=== PATIENT | female | born 1985 | race American Indian/Alaskan Native ===

== ENCOUNTER 2017-06-27 18:49 | Inpatient (IN) | payer OTHER ==
--- NOTE | 2017-06-27 19:00 | History and Physical Report ---
History of Present Illness Date of examination: 06/27/17 Date of admission: 06/27/17 18:49 History of present illness: EDC Confirmation: 06/20/2017 Gestational Age: 10 weeks Past History : 1 Term Births: 0 Living Children: 0 Para: 0 Aborta: 0 Past Medical History: Asthma Past Surgical History: Knee Arthroscopy(R) Family History Summary: Other family member - Has No Family History of Stomach Cancer - Entered On: 2016 Other family member - Has No Family History of Small Bowel Cancer - Entered On: 11/22/2016 Other family member - Has No Family History of Pancreatic Cancer - Entered On: Other family member - Has No Family History of Ovarvian Cancer - Entered On: 11/22 Other family member - Has No Family History of Kidney/Urinary Tract Cancer - Entered On: 11/22/2016 Other family member - Has No Family History of DVT/PE on OCP - Entered On: 2016 Other family member - Has No Family History of Breast Cancer - Entered On: 2016 Other family member - Has No Family History of Brain Cancer - Entered On: 2016 Other family member - Has No Family History of Biliary Tract Cancer - Entered On : 11/22/2016 PGM - Has Family History of Uterine Cancer - Entered On: 11/22/2016 Other family member - Has Family History Colon Cancer - Entered On: 11/22/2016 Social History: Patient is Smoking History: Patient has never smoked. 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 Infection History Hx of STD: none Personal hx. of genital herpes: no Partner hx. of genital herpes: no Rash, Viral, or Febrile illness since last LMP? no Varicella/Chicken Pox Status: Previous Disease TB Risk: no Genetic History Congenital Heart Defect: Mom: no Dad: no Timothy Disease: Mom: no Dad: no Thalassemia Mom: no Dad: no Neural Tube Defect Mom: no Dad: no Down's Syndrome Mom: no Dad: no Cain-Sachs Mom: no Dad: no Sickle Cell Disease/Trait Mom: no Dad: no Hemophilia Mom: no Dad: no Muscular Dystrophy Mom: no Dad: no Cystic Fibrosis Mom: no Dad: no Ely Chorea Mom: no Dad: no Mental Retardation Mom: no Dad: no Fragile X Mom: no Dad: no Other Genetic/Chromosomal Disorder Mom: no Dad: no Child w/other defect Mom: no Dad: no Enviromental Exposures Enviromental Exposures Reviewed Xray Exposure: no Medication, drug, or alcohol use since LMP: yes Chemical/Other Exposure: no Exposure to Cat Liter: no Hx of Parvovirus (Fifth Disease): no Occupational Exposure to Children: other Comments: amoxicillin, loratidine, works at [email or web address] Active Medications (reviewed today): LORATADINE 10 MG ORAL TABS (LORATADINE) AMOXICILLIN 500 MG ORAL TABS (AMOXICILLIN) Current Allergies: DICLOFENAC SODIUM (DICLOFENAC SODIUM TBEC) (Critical) VOLTAREN (Critical) Laboratory Results Date/Time Collected: 11/22/2016 Routine Urinalysis Color: lt. yellow Appearance: cloudy Leukocytes: negative Nitrite: negative Urobilinogen: negative Protein: negative Blood: negative Ketone: negative Bilirubin: negative Glucose: negative Urine HCG: positive Review of Systems General Denies fever, chills, sweats, anorexia, fatigue, weakness, malaise, weight loss and sleep disorder. Complains of nausea and vomiting. Denies headache, swelling of legs, abdominal pain, vaginal discharge, vaginal bleeding and contractions. Denies vaginal discharge, incontinence, dysuria, hematuria, urinary frequency, amenorrhea, menorrhagia, abnormal vaginal bleeding, pelvic pain, genital sores, decreased libido, painful periods, painful sex, urinary urgency, hot flashes, vaginal dryness, vaginal itching and vaginal odor. CV Denies chest pains, palpitations, syncope, dyspnea on exertion, orthopnea, PND and peripheral edema. Resp Denies cough, dyspnea at rest, excessive sputum, hemoptysis, wheezing and pleurisy. GI Denies nausea, vomiting, diarrhea, constipation, change in bowel habits, abdominal pain, melena, hematochezia, jaundice, gas/bloating, indigestion/ heartburn, dysphagia and odynophagia. Endo Denies cold intolerance, heat intolerance, polydipsia, polyphagia, polyuria and unusual weight change. Breast Denies left breast lump, right breast lump, nipple discharge, bloody discharge from nipple, breast pain, abnormal mammogram and breast enlargement. MS Complains of back pain. Denies joint pain, joint swelling, muscle cramps, muscle weakness, stiffness, arthritis, sciatica, restless legs, leg pain at night and leg pain with exertion. Derm Denies rash, itching, dryness and suspicious lesions. Neuro Denies paralysis, paresthesias, headache, seizures, tremors, vertigo, transient blindness, frequent falls, frequent headaches and difficulty walking. Psych Denies depression, anxiety, irritability and mood swings. Eyes Denies blurring, diplopia, irritation, discharge, vision loss, eye pain and photophobia. ENT Denies earache, ear discharge, tinnitus, decreased hearing, nasal congestion, nosebleeds, sore throat and hoarseness. Allergy Denies urticaria, allergic rash, hay fever and recurrent infections. Heme Denies abnormal bruising, bleeding and enlarged lymph nodes. 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 Negative: distention, tenderness Genitourinary (Female): Positive: normal perenium Vulva: both: normal Vagina: Positive: normal moisture. Negative: discharge Cervix: Negative: lesion, discharge Uterus: Positive: normal size, normal contour Adnexa: both: normal Anus/Rectum: Positive: normal perianal skin, heme negative. Negative: rectal mass, hemorrhoids Extremities: Positive: normal Deep Tendon Reflex Grade: Normal +2 - Obstetrical FHR: category 1 Uterine Contraction Monitor Mode: External Uterine Contraction Pattern: Absent Uterine Tone Measurement Phase: Resting Uterine Contraction Intensity: Mild Results All other labs normal. HBsAg Screen Negative Negative *1 Rubella Antibodies, IgG 18.10 index Immune >0.99 *2 Non-immune <0.90 Equivocal 0.90 - 0.99 Immune >0.99 ABO Grouping B *3 Rh Factor Negative *4 Please note: Prior records for this patient's ABO / Rh type are not available for additional verification. Antibody Screen Negative Negative *5 RPR Non Reactive Non Reactive *6 WBC [H] 11.3 x10E3/uL 3.4-10.8 *7 RBC 4.56 x10E6/uL 3.77-5.28 *8 Hemoglobin 12.8 g/dL 11.1-15.9 *9 Hematocrit 39.3 % 34.0-46.6 *10 MCV 86 fL 79-97 *11 MCH 28.1 pg 26.6-33.0 *12 MCHC 32.6 g/dL 31.5-35.7 *13 RDW 13.9 % 12.3-15.4 *14 Platelets [H] 409 x10E3/uL 150-379 *15 Neutrophils 68 % *16 Lymphs 26 % *17 Monocytes 5 % *18 Eos 1 % *19 Basos 0 % *20 ! Immature Cells <No Reported Value> *21 Neutrophils (Absolute) [H] 7.6 x10E3/uL 1.4-7.0 *22 Lymphs (Absolute) 3.0 x10E3/uL 0.7-3.1 *23 Monocytes(Absolute) 0.6 x10E3/uL 0.1-0.9 *24 Eos (Absolute) 0.1 x10E3/uL 0.0-0.4 *25 Baso (Absolute) 0.0 x10E3/uL 0.0-0.2 *26 ! Immature Granulocytes 0 % *27 ! Immature Grans (Abs) 0.0 x10E3/uL 0.0-0.1 *28 ! NRBC <No Reported Value> *29 Hematology Comments: <No Reported Value> *30 Tests: (3) HB Solu + Rflx Fra (669697) Hemoglobin (Hgb) Solubility Negative Negative *33 Tests: (4) Panel 567408 ([id number]) HIV Screen 4th Generation wRfx Non Reactive Non Reactive *34 Tests: (5) Gest. Diabetes 1-Hr Screen (490175) ! Gestational Diabetes Screen 115 mg/dL 65-139 *35 Tests: (6) HCV Ab w/Rflx to Verification ([id number]) ! HCV Ab <0.1 s/co ratio 0.0-0.9 *36 Tests: (7) Comment: ([id number]) ! Comment: [facility] *37 Non reactive HCV antibody screen is consistent with no HCV infection, unless recent infection is suspected or other evidence exists to indicate HCV infection. Tests: (8) Urine Culture, Routine ([id number]) Urine Culture, Routine Final report *38 Tests: (9) Result ([id number]) ! Result 1 No growth *39 Assessment and Plan 31yo @ 41 week seen in office today with NRNST IOL was originally roshan for tomorrow. Will admit tonight for IOL with Cervidil GBS + will start Ampicillin when in active labor. Orders in EMR Pt aware of nature of serial IOL and that we are available to answer questions at any time
[2017-06-27] MEDS ORDERED: BRETHINE SUB-Q PRN (19:08)
[2017-06-27] MEDS ORDERED: CERVIDIL VG ONE (19:08)
[2017-06-27] MEDS ORDERED: ePHEDrine SULFATE IV PRN (19:08)
[2017-06-27] MEDS ORDERED: POLYCILLIN/NS 2 GM/100 ML 2 GM/100 ML BAG IV ONE (19:08)
[2017-06-27] MEDS ORDERED: XYLOCAINE 2% INFILTRATI ONE (19:08)
[2017-06-27] MEDS ORDERED: MINERAL OIL PO PRN (19:08)
[2017-06-27] MEDS ORDERED: ZOFRAN IV PRN (19:08)
[2017-06-27] MEDS ORDERED: AMBIEN PO PRN (19:38)
[2017-06-27] MEDS ORDERED: PITOCin/NS 20 UNIT/1000ML DRIP 20 UNITS/1,000 ML BAG IV SCH (20:00)
[2017-06-27 20:09] LABS: Hematocrit 39.9 % (30.3-42.9); Hemoglobin 13.2 gm/dl (10.1-14.3); Mean Corpuscular HGB Conc 33 % (30-34); Mean Corpuscular Hemoglobin 29 pg (28-32); Mean Corpuscular Volume 87 fl (79-97); Platelet Count 419 K/mm3 (140-440); Red Blood Count 4.61 M/mm3 (3.65-5.03); Red Cell Distribution Width 14.1 % (13.2-15.2); White Blood Count 13.9 K/mm3 (4.5-11.0)
--- NOTE | 2017-06-27 20:32 | Event Note ---
Date: 06/27/17 (cervidil placed) SVE closed, 10% -3 All questions addressed Family present in room with pt
[2017-06-27] MEDS ORDERED: POLYCILLIN/NS 1 GM/50 ML 1 GM/50 ML BAG IV SCH (23:10)
--- NOTE | 2017-06-28 06:17 | Progress Note ---
Assessment and Plan Discussed POC with pt and family. Cervidil out @ 0800, AM care, Diet. Will plan to start pitocin @ 0900. Pt understands serial nature of induction. She is aware that section may be indicated for and or maternal indications. Report to NIRMAL Stanford Subjective - Subjective Date of service: 06/28/17 (Cervidil in place to be removed @ 0800) Interval history: EDC Confirmation: 06/20/2017 Gestational Age: 10 weeks Past History : 1 Term Births: 0 Living Children: 0 Para: 0 Aborta: 0 Past Medical History: Asthma Past Surgical History: Knee Arthroscopy(R) Family History Summary: Other family member - Has No Family History of Stomach Cancer - Entered On: 2016 Other family member - Has No Family History of Small Bowel Cancer - Entered On: 11/22/2016 Other family member - Has No Family History of Pancreatic Cancer - Entered On: Other family member - Has No Family History of Ovarvian Cancer - Entered On: 11/22 Other family member - Has No Family History of Kidney/Urinary Tract Cancer - Entered On: 11/22/2016 Other family member - Has No Family History of DVT/PE on OCP - Entered On: 2016 Other family member - Has No Family History of Breast Cancer - Entered On: 2016 Other family member - Has No Family History of Brain Cancer - Entered On: 2016 Other family member - Has No Family History of Biliary Tract Cancer - Entered On : 11/22/2016 PGM - Has Family History of Uterine Cancer - Entered On: 11/22/2016 Other family member - Has Family History Colon Cancer - Entered On: 11/22/2016 Social History: Patient is Smoking History: Patient has never smoked. 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 Infection History Hx of STD: none Personal hx. of genital herpes: no Partner hx. of genital herpes: no Rash, Viral, or Febrile illness since last LMP? no Varicella/Chicken Pox Status: Previous Disease TB Risk: no Genetic History Congenital Heart Defect: Mom: no Dad: no Timothy Disease: Mom: no Dad: no Thalassemia Mom: no Dad: no Neural Tube Defect Mom: no Dad: no Down's Syndrome Mom: no Dad: no Cain-Sachs Mom: no Dad: no Sickle Cell Disease/Trait Mom: no Dad: no Hemophilia Mom: no Dad: no Muscular Dystrophy Mom: no Dad: no Cystic Fibrosis Mom: no Dad: no [place] Chorea Mom: no Dad: no Mental Retardation Mom: no Dad: no Fragile X Mom: no Dad: no Other Genetic/Chromosomal Disorder Mom: no Dad: no Child w/other defect Mom: no Dad: no Enviromental Exposures Enviromental Exposures Reviewed Xray Exposure: no Medication, drug, or alcohol use since LMP: yes Chemical/Other Exposure: no Exposure to Cat Liter: no Hx of Parvovirus (Fifth Disease): no Occupational Exposure to Children: other Comments: amoxicillin, loratidine, works at [employer] Active Medications (reviewed today): LORATADINE 10 MG ORAL TABS (LORATADINE) AMOXICILLIN 500 MG ORAL TABS (AMOXICILLIN) Current Allergies: DICLOFENAC SODIUM (DICLOFENAC SODIUM TBEC) (Critical) VOLTAREN (Critical) Laboratory Results Date/Time Collected: 11/22/2016 Routine Urinalysis Color: lt. yellow Appearance: cloudy Leukocytes: negative Nitrite: negative Urobilinogen: negative Protein: negative Blood: negative Ketone: negative Bilirubin: negative Glucose: negative Urine HCG: positive Review of Systems General Denies fever, chills, sweats, anorexia, fatigue, weakness, malaise, weight loss and sleep disorder. Complains of nausea and vomiting. Denies headache, swelling of legs, abdominal pain, vaginal discharge, vaginal bleeding and contractions. Denies vaginal discharge, incontinence, dysuria, hematuria, urinary frequency, amenorrhea, menorrhagia, abnormal vaginal bleeding, pelvic pain, genital sores, decreased libido, painful periods, painful sex, urinary urgency, hot flashes, vaginal dryness, vaginal itching and vaginal odor. CV Denies chest pains, palpitations, syncope, dyspnea on exertion, orthopnea, PND and peripheral edema. Resp Denies cough, dyspnea at rest, excessive sputum, hemoptysis, wheezing and pleurisy. GI Denies nausea, vomiting, diarrhea, constipation, change in bowel habits, abdominal pain, melena, hematochezia, jaundice, gas/bloating, indigestion/ heartburn, dysphagia and odynophagia. Endo Denies cold intolerance, heat intolerance, polydipsia, polyphagia, polyuria and unusual weight change. Breast Denies left breast lump, right breast lump, nipple discharge, bloody discharge from nipple, breast pain, abnormal mammogram and breast enlargement. MS Complains of back pain. Denies joint pain, joint swelling, muscle cramps, muscle weakness, stiffness, arthritis, sciatica, restless legs, leg pain at night and leg pain with exertion. Derm Denies rash, itching, dryness and suspicious lesions. Neuro Denies paralysis, paresthesias, headache, seizures, tremors, vertigo, transient blindness, frequent falls, frequent headaches and difficulty walking. Psych Denies depression, anxiety, irritability and mood swings. Eyes Denies blurring, diplopia, irritation, discharge, vision loss, eye pain and photophobia. ENT Denies earache, ear discharge, tinnitus, decreased hearing, nasal congestion, nosebleeds, sore throat and hoarseness. Allergy Denies urticaria, allergic rash, hay fever and recurrent infections. Heme Denies abnormal bruising, bleeding and enlarged lymph nodes. 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: No lesions, normal BUS, normal rugae Cervix: No lesions; no cervical motion tenderness Uterus: normal position, midline, mobile Fundal Ht: 9 Adnexae: no masses or tenderness Rectovaginal: no masses or tenderness Patient reports: movement normal Objective - Vital Signs Vital Signs: Vital Signs - 12hr 06/27/17 06/27/17 06/27/17 19:34 19:39 19:44 Temperature Pulse Rate 104 H 110 H 117 H Respiratory Rate Blood Pressure 130/66 O2 Sat by Pulse 99 99 99 Oximetry 06/27/17 06/27/17 06/27/17 19:49 19:54 19:59 Temperature Pulse Rate 114 H 105 H 112 H Respiratory Rate Blood Pressure O2 Sat by Pulse 98 99 97 Oximetry 06/27/17 06/27/17 06/27/17 20:04 20:09 20:14 Temperature Pulse Rate 107 H 109 H 105 H Respiratory Rate Blood Pressure O2 Sat by Pulse 98 98 98 Oximetry 06/27/17 06/27/17 06/27/17 20:19 20:24 20:29 Temperature Pulse Rate 105 H 109 H 102 H Respiratory Rate Blood Pressure O2 Sat by Pulse 98 99 98 Oximetry 06/27/17 06/27/17 06/27/17 20:32 20:33 20:34 Temperature 97.7 F Pulse Rate 108 H 101 H 108 H Respiratory 12 Rate Blood Pressure 116/74 116/74 O2 Sat by Pulse 98 98 Oximetry 06/27/17 06/27/17 06/27/17 20:39 20:44 20:49 Temperature Pulse Rate 100 H 98 H 95 H Respiratory Rate Blood Pressure O2 Sat by Pulse 99 99 99 Oximetry 06/27/17 06/27/17 06/27/17 20:54 20:59 21:04 Temperature Pulse Rate 112 H 105 H 94 H Respiratory Rate Blood Pressure O2 Sat by Pulse 99 98 98 Oximetry 06/27/17 06/27/17 06/27/17 21:09 21:14 21:19 Temperature Pulse Rate 95 H 92 H 95 H Respiratory Rate Blood Pressure O2 Sat by Pulse 97 98 99 Oximetry 06/27/17 06/27/17 06/27/17 21:24 21:29 21:34 Temperature Pulse Rate 90 88 89 Respiratory Rate Blood Pressure O2 Sat by Pulse 98 99 98 Oximetry 06/27/17 06/27/17 06/27/17 21:39 21:44 21:49 Temperature Pulse Rate 94 H 88 90 Respiratory Rate Blood Pressure O2 Sat by Pulse 98 98 98 Oximetry 06/27/17 06/27/17 06/27/17 21:54 21:59 22:04 Temperature Pulse Rate 96 H 85 94 H Respiratory Rate Blood Pressure O2 Sat by Pulse 98 98 98 Oximetry 06/27/17 06/27/17 06/27/17 22:09 22:14 22:19 Temperature Pulse Rate 102 H 91 H 94 H Respiratory Rate Blood Pressure O2 Sat by Pulse 98 98 98 Oximetry 06/27/17 06/27/17 06/27/17 22:24 22:29 22:34 Temperature Pulse Rate 102 H 97 H 86 Respiratory Rate Blood Pressure O2 Sat by Pulse 98 99 98 Oximetry 06/27/17 06/27/17 06/27/17 22:51 22:56 23:01 Temperature Pulse Rate 86 108 H 94 H Respiratory Rate Blood Pressure O2 Sat by Pulse 100 99 99 Oximetry 06/27/17 06/27/17 06/27/17 23:06 23:11 23:16 Temperature Pulse Rate 87 93 H 84 Respiratory Rate Blood Pressure O2 Sat by Pulse 98 99 99 Oximetry 06/27/17 06/27/17 06/27/17 23:21 23:26 23:31 Temperature Pulse Rate 85 103 H 103 H Respiratory Rate Blood Pressure O2 Sat by Pulse 99 99 98 Oximetry 06/27/17 06/27/17 06/27/17 23:36 23:41 23:46 Temperature Pulse Rate 90 86 89 Respiratory Rate Blood Pressure O2 Sat by Pulse 99 98 98 Oximetry 06/27/17 06/27/17 06/28/17 23:51 23:56 00:01 Temperature Pulse Rate 84 99 H 85 Respiratory Rate Blood Pressure O2 Sat by Pulse 98 96 98 Oximetry 06/28/17 06/28/17 06/28/17 00:06 00:11 00:16 Temperature Pulse Rate 90 75 85 Respiratory Rate Blood Pressure O2 Sat by Pulse 98 99 99 Oximetry 06/28/17 06/28/17 06/28/17 00:21 00:26 00:31 Temperature Pulse Rate 75 87 77 Respiratory Rate Blood Pressure O2 Sat by Pulse 98 97 98 Oximetry 06/28/17 06/28/17 06/28/17 00:36 00:41 00:46 Temperature Pulse Rate 82 83 87 Respiratory Rate Blood Pressure O2 Sat by Pulse 96 97 97 Oximetry 06/28/17 06/28/17 06/28/17 00:51 00:56 01:01 Temperature Pulse Rate 84 84 86 Respiratory Rate Blood Pressure O2 Sat by Pulse 97 98 97 Oximetry 06/28/17 06/28/17 06/28/17 01:06 01:11 01:16 Temperature Pulse Rate 83 85 101 H Respiratory Rate Blood Pressure O2 Sat by Pulse 97 97 98 Oximetry 06/28/17 06/28/17 06/28/17 01:21 01:26 01:31 Temperature Pulse Rate 90 95 H 97 H Respiratory Rate Blood Pressure O2 Sat by Pulse 99 98 98 Oximetry 06/28/17 06/28/17 06/28/17 01:36 01:41 01:46 Temperature Pulse Rate 83 75 80 Respiratory Rate Blood Pressure O2 Sat by Pulse 100 98 98 Oximetry 06/28/17 06/28/17 06/28/17 01:51 01:56 02:08 Temperature Pulse Rate 93 H 85 95 H Respiratory Rate Blood Pressure O2 Sat by Pulse 96 99 100 Oximetry 06/28/17 06/28/17 06/28/17 02:13 02:18 02:23 Temperature Pulse Rate 85 89 113 H Respiratory Rate Blood Pressure O2 Sat by Pulse 100 99 97 Oximetry 06/28/17 06/28/17 06/28/17 02:28 02:33 02:38 Temperature Pulse Rate 93 H 91 H 86 Respiratory Rate Blood Pressure O2 Sat by Pulse 98 98 99 Oximetry 06/28/17 06/28/17 06/28/17 02:43 02:48 02:53 Temperature Pulse Rate 91 H 89 104 H Respiratory Rate Blood Pressure O2 Sat by Pulse 99 100 98 Oximetry 06/28/17 06/28/17 06/28/17 02:58 03:03 03:08 Temperature Pulse Rate 104 H 108 H 105 H Respiratory Rate Blood Pressure O2 Sat by Pulse 98 96 98 Oximetry 06/28/17 06/28/17 06/28/17 03:13 03:18 03:23 Temperature Pulse Rate 109 H 112 H 97 H Respiratory Rate Blood Pressure O2 Sat by Pulse 97 98 98 Oximetry 06/28/17 06/28/17 06/28/17 03:24 03:28 03:30 Temperature Pulse Rate 92 H 103 H 95 H Respiratory Rate Blood Pressure O2 Sat by Pulse 91 97 94 Oximetry 06/28/17 06/28/17 06/28/17 03:33 03:35 03:38 Temperature Pulse Rate 100 H 89 107 H Respiratory Rate Blood Pressure O2 Sat by Pulse 97 92 95 Oximetry 06/28/17 06/28/17 06/28/17 03:40 03:43 03:47 Temperature Pulse Rate 97 H 88 109 H Respiratory Rate Blood Pressure O2 Sat by Pulse 94 97 94 Oximetry 06/28/17 06/28/17 06/28/17 03:48 03:53 03:58 Temperature Pulse Rate 95 H 84 88 Respiratory Rate Blood Pressure O2 Sat by Pulse 97 100 100 Oximetry 06/28/17 06/28/17 06/28/17 04:03 04:08 04:13 Temperature Pulse Rate 81 93 H 93 H Respiratory Rate Blood Pressure O2 Sat by Pulse 98 97 98 Oximetry 06/28/17 06/28/17 06/28/17 04:18 04:23 04:28 Temperature Pulse Rate 86 88 103 H Respiratory Rate Blood Pressure O2 Sat by Pulse 100 98 98 Oximetry 06/28/17 06/28/17 06/28/17 04:33 04:38 04:43 Temperature Pulse Rate 106 H 96 H 101 H Respiratory Rate Blood Pressure O2 Sat by Pulse 98 98 98 Oximetry 06/28/17 06/28/17 06/28/17 04:48 04:53 04:58 Temperature Pulse Rate 94 H 113 H 100 H Respiratory Rate Blood Pressure O2 Sat by Pulse 99 99 100 Oximetry 06/28/17 06/28/17 06/28/17 05:03 05:08 05:13 Temperature Pulse Rate 101 H 88 90 Respiratory Rate Blood Pressure O2 Sat by Pulse 100 99 99 Oximetry 06/28/17 06/28/17 06/28/17 05:18 05:23 05:28 Temperature Pulse Rate 101 H 103 H 97 H Respiratory Rate Blood Pressure O2 Sat by Pulse 98 99 99 Oximetry 06/28/17 06/28/17 06/28/17 05:33 05:38 05:43 Temperature Pulse Rate 99 H 100 H 92 H Respiratory Rate Blood Pressure O2 Sat by Pulse 97 97 96 Oximetry 06/28/17 06/28/17 06/28/17 05:48 05:53 05:58 Temperature Pulse Rate 87 96 H 95 H Respiratory Rate Blood Pressure O2 Sat by Pulse 99 97 97 Oximetry 06/28/17 06/28/17 06:03 06:08 Temperature Pulse Rate 109 H 80 Respiratory Rate Blood Pressure O2 Sat by Pulse 99 100 Oximetry - Exam Breasts: deferred Cardiovascular: Regular rate Lungs: Normal air movement Abdomen: Present: normal appearance, soft. Absent: distention, tenderness Vulva: both: normal Uterus: Present: normal FHR: auscultation normal, category 1 Uterine Contraction Monitor Mode: External Uterine Contraction Pattern: Irregular Uterine Tone Measurement Phase: Resting Uterine Contraction Intensity: Mild Extremities: normal Deep Tendon Reflex Grade: Normal +2 - Labs Labs: Abnormal Labs 06/27/17 19:42 WBC 13.9 H Laboratory Results - last 24 hr 06/27/17 06/27/17 19:40 19:42 WBC 13.9 H RBC 4.61 Hgb 13.2 Hct 39.9 MCV 87 MCH 29 MCHC 33 RDW 14.1 Plt Count 419 Blood Type B NEGATIVE Antibody Screen Negative
[2017-06-28] MEDS: LACTATED RINGERS 1,000 ML IV SCH (06:28)
[2017-06-28] MEDS ORDERED: CERVIDIL VG ONE (09:00)
--- NOTE | 2017-06-28 13:48 | Progress Note ---
Assessment and Plan - Patient Problems (1) 41 weeks gestation of Current Visit: Yes Status: Acute (2) Group B Streptococcus carrier state affecting Current Visit: Yes Status: Acute (3) Non-reassuring heart rate or rhythm affecting management of mother Current Visit: Yes Status: Acute Plan to address problem: Plan of care explained, questions answered, she voiced understanding and agrees with plan of care. (4) Rh negative status during in third trimester Current Visit: Yes Status: Acute Subjective - Subjective Date of service: 06/28/17 Principal diagnosis: IUP@41 11/20w see in office yesterday with NRNST Interval history: 2nd cervidil placed d/t unfavorable cervix. Patient reports: movement normal, no new complaints Objective - Vital Signs Vital Signs: Vital Signs - 12hr 06/28/17 06/28/17 06/28/17 01:46 01:51 01:56 Temperature Pulse Rate 80 93 H 85 Respiratory Rate Blood Pressure O2 Sat by Pulse 98 96 99 Oximetry 06/28/17 06/28/17 06/28/17 02:08 02:13 02:18 Temperature Pulse Rate 95 H 85 89 Respiratory Rate Blood Pressure O2 Sat by Pulse 100 100 99 Oximetry 06/28/17 06/28/17 06/28/17 02:23 02:28 02:33 Temperature Pulse Rate 113 H 93 H 91 H Respiratory Rate Blood Pressure O2 Sat by Pulse 97 98 98 Oximetry 06/28/17 06/28/17 06/28/17 02:38 02:43 02:48 Temperature Pulse Rate 86 91 H 89 Respiratory Rate Blood Pressure O2 Sat by Pulse 99 99 100 Oximetry 06/28/17 06/28/17 06/28/17 02:53 02:58 03:03 Temperature Pulse Rate 104 H 104 H 108 H Respiratory Rate Blood Pressure O2 Sat by Pulse 98 98 96 Oximetry 06/28/17 06/28/17 06/28/17 03:08 03:13 03:18 Temperature Pulse Rate 105 H 109 H 112 H Respiratory Rate Blood Pressure O2 Sat by Pulse 98 97 98 Oximetry 06/28/17 06/28/17 06/28/17 03:23 03:24 03:28 Temperature Pulse Rate 97 H 92 H 103 H Respiratory Rate Blood Pressure O2 Sat by Pulse 98 91 97 Oximetry 06/28/17 06/28/17 06/28/17 03:30 03:33 03:35 Temperature Pulse Rate 95 H 100 H 89 Respiratory Rate Blood Pressure O2 Sat by Pulse 94 97 92 Oximetry 06/28/17 06/28/17 06/28/17 03:38 03:40 03:43 Temperature Pulse Rate 107 H 97 H 88 Respiratory Rate Blood Pressure O2 Sat by Pulse 95 94 97 Oximetry 06/28/17 06/28/17 06/28/17 03:47 03:48 03:53 Temperature Pulse Rate 109 H 95 H 84 Respiratory Rate Blood Pressure O2 Sat by Pulse 94 97 100 Oximetry 06/28/17 06/28/17 06/28/17 03:58 04:03 04:08 Temperature Pulse Rate 88 81 93 H Respiratory Rate Blood Pressure O2 Sat by Pulse 100 98 97 Oximetry 06/28/17 06/28/17 06/28/17 04:13 04:18 04:23 Temperature Pulse Rate 93 H 86 88 Respiratory Rate Blood Pressure O2 Sat by Pulse 98 100 98 Oximetry 06/28/17 06/28/17 06/28/17 04:28 04:33 04:38 Temperature Pulse Rate 103 H 106 H 96 H Respiratory Rate Blood Pressure O2 Sat by Pulse 98 98 98 Oximetry 06/28/17 06/28/17 06/28/17 04:43 04:48 04:53 Temperature Pulse Rate 101 H 94 H 113 H Respiratory Rate Blood Pressure O2 Sat by Pulse 98 99 99 Oximetry 06/28/17 06/28/17 06/28/17 04:58 05:03 05:08 Temperature Pulse Rate 100 H 101 H 88 Respiratory Rate Blood Pressure O2 Sat by Pulse 100 100 99 Oximetry 06/28/17 06/28/17 06/28/17 05:13 05:18 05:23 Temperature Pulse Rate 90 101 H 103 H Respiratory Rate Blood Pressure O2 Sat by Pulse 99 98 99 Oximetry 06/28/17 06/28/17 06/28/17 05:28 05:33 05:38 Temperature Pulse Rate 97 H 99 H 100 H Respiratory Rate Blood Pressure O2 Sat by Pulse 99 97 97 Oximetry 06/28/17 06/28/17 06/28/17 05:43 05:48 05:53 Temperature Pulse Rate 92 H 87 96 H Respiratory Rate Blood Pressure O2 Sat by Pulse 96 99 97 Oximetry 06/28/17 06/28/17 06/28/17 05:58 06:03 06:08 Temperature Pulse Rate 95 H 109 H 80 Respiratory Rate Blood Pressure O2 Sat by Pulse 97 99 100 Oximetry 06/28/17 06/28/17 06/28/17 06:13 06:18 06:23 Temperature 96.8 F L Pulse Rate 89 101 H 91 H Respiratory 14 Rate Blood Pressure 107/63 O2 Sat by Pulse 100 99 99 Oximetry 06/28/17 06/28/17 06/28/17 06:28 06:33 06:38 Temperature Pulse Rate 99 H 92 H 96 H Respiratory Rate Blood Pressure O2 Sat by Pulse 99 99 100 Oximetry 06/28/17 06/28/17 06/28/17 06:43 06:48 06:53 Temperature Pulse Rate 84 84 81 Respiratory Rate Blood Pressure O2 Sat by Pulse 98 97 97 Oximetry 06/28/17 06/28/17 06/28/17 06:55 06:58 07:03 Temperature Pulse Rate 77 83 89 Respiratory Rate Blood Pressure O2 Sat by Pulse 94 98 97 Oximetry 06/28/17 06/28/17 06/28/17 07:08 07:12 07:13 Temperature Pulse Rate 91 H 116 H 104 H Respiratory Rate Blood Pressure O2 Sat by Pulse 95 94 100 Oximetry 06/28/17 06/28/17 06/28/17 07:18 07:21 07:45 Temperature 98.3 F Pulse Rate 100 H 92 H 88 Respiratory 16 Rate Blood Pressure 117/71 120/65 O2 Sat by Pulse 97 Oximetry 06/28/17 06/28/17 06/28/17 09:16 11:05 13:40 Temperature 98.2 F Pulse Rate 101 H 103 H 77 Respiratory 16 Rate Blood Pressure 110/58 125/66 O2 Sat by Pulse 99 Oximetry - Exam Breasts: deferred Lungs: Normal air movement FHR: category 1 Uterine Contraction Monitor Mode: External Cervical Dilatation: 0 (per RN ) Uterine Contraction Pattern: Irregular - Labs Labs: Abnormal Labs 06/27/17 19:42 WBC 13.9 H Laboratory Results - last 24 hr 06/27/17 06/27/17 06/27/17 19:40 19:42 19:42 WBC 13.9 H RBC 4.61 Hgb 13.2 Hct 39.9 MCV 87 MCH 29 MCHC 33 RDW 14.1 Plt Count 419 RPR Nonreactive Blood Type B NEGATIVE Antibody Screen Negative
--- NOTE | 2017-06-28 21:46 | Progress Note ---
Assessment and Plan Cervidil removed, no cervical change, will start low dose pitocin to avoid vaginal irritation with prolonged cervidil use. Plan of care explained to patient and her family, she vocied understanding and agrees with plan of care - Patient Problems (1) 41 weeks gestation of Current Visit: Yes Status: Acute (2) Group B Streptococcus carrier state affecting Current Visit: Yes Status: Acute (3) Rh negative status during in third trimester Current Visit: Yes Status: Acute Subjective - Subjective Date of service: 06/28/17 Principal diagnosis: IUP@41 11/20w see in office yesterday with NRNST Interval history: No complaints, +fm, cramping Patient reports: movement normal, no new complaints, no loss of fluid, no vaginal bleeding Objective - Vital Signs Vital Signs: Vital Signs - 12hr 06/28/17 06/28/17 06/28/17 11:05 13:40 14:52 Temperature 98.2 F Pulse Rate 103 H 77 104 H Respiratory 16 Rate Blood Pressure 110/58 125/66 129/70 O2 Sat by Pulse Oximetry 06/28/17 06/28/17 06/28/17 18:00 19:47 19:52 Temperature 99.2 F Pulse Rate 76 88 83 Respiratory 16 Rate Blood Pressure 129/70 O2 Sat by Pulse 99 100 100 Oximetry 06/28/17 06/28/17 06/28/17 19:57 19:58 20:02 Temperature 98.9 F Pulse Rate 84 91 H 88 Respiratory 18 Rate Blood Pressure 128/81 O2 Sat by Pulse 100 100 100 Oximetry 06/28/17 06/28/17 06/28/17 20:07 20:12 20:17 Temperature Pulse Rate 90 85 80 Respiratory Rate Blood Pressure O2 Sat by Pulse 100 100 100 Oximetry 06/28/17 06/28/17 06/28/17 20:22 20:27 20:32 Temperature Pulse Rate 83 90 78 Respiratory Rate Blood Pressure O2 Sat by Pulse 100 100 100 Oximetry 06/28/17 06/28/17 06/28/17 20:37 20:42 20:47 Temperature Pulse Rate 92 H 82 81 Respiratory Rate Blood Pressure O2 Sat by Pulse 100 100 100 Oximetry 06/28/17 06/28/17 20:52 21:25 Temperature Pulse Rate 83 89 Respiratory Rate Blood Pressure O2 Sat by Pulse 100 99 Oximetry - Exam Breasts: deferred Lungs: Normal air movement Abdomen: Present: soft Vulva: both: normal FHR: category 1 Cervical Dilatation: 0 Cervical Effacement Percentage: 0 station: -4 Uterine Contraction Pattern: Irregular - Labs Labs: Abnormal Labs 06/27/17 19:42 WBC 13.9 H Laboratory Results - last 24 hr 06/27/17 19:42 RPR Nonreactive
[2017-06-28] MEDS ORDERED: PITOCin/NS 30 UNIT/500ML 30 UNITS/500 ML BAG IV SCH (22:00)
--- NOTE | 2017-06-29 06:00 | Progress Note ---
Assessment and Plan Day # 2 of IOL postdates with a NRNST in office on Tuesday. Pt has been on low dose pit overnite. SVE this AM shows significant change since my exam on Tuesday. 1.5,50,-2 will allow pt OOB for AM care and family will get some breakfast for her. P: Pitocin per protocol. GBS+: Will start Ampicillin when pt is 4cm. Consult with . Re-eval as needed. Subjective - Subjective Date of service: 06/29/17 (Pt OOB to void) Principal diagnosis: IUP@41 12/21w see in office yesterday with NRNST Interval history: EDC Confirmation: 06/20/2017 Gestational Age: 10 weeks Past History : 1 Term Births: 0 Living Children: 0 Para: 0 Aborta: 0 Past Medical History: Asthma Past Surgical History: Knee Arthroscopy(R) Family History Summary: Other family member - Has No Family History of Stomach Cancer - Entered On: 2016 Other family member - Has No Family History of Small Bowel Cancer - Entered On: 11/22/2016 Other family member - Has No Family History of Pancreatic Cancer - Entered On: Other family member - Has No Family History of Ovarvian Cancer - Entered On: 11/22 Other family member - Has No Family History of Kidney/Urinary Tract Cancer - Entered On: 11/22/2016 Other family member - Has No Family History of DVT/PE on OCP - Entered On: 2016 Other family member - Has No Family History of Breast Cancer - Entered On: 2016 Other family member - Has No Family History of Brain Cancer - Entered On: 2016 Other family member - Has No Family History of Biliary Tract Cancer - Entered On : 11/22/2016 PGM - Has Family History of Uterine Cancer - Entered On: 11/22/2016 Other family member - Has Family History Colon Cancer - Entered On: 11/22/2016 Social History: Patient is Smoking History: Patient has never smoked. Risk Factors: Smoked Tobacco Use: Never smoker Drug use: no Alcohol use: no Exercise: no Seatbelt use: 100 % Past Medical History Surgery (Non-supervisor money room): Knee Arthroscopy(R) Abnormal PAP: never SAMINA Exposure: negative Infertility: negative Uterine Anomaly: negative Uterine Surgery (not C/S): negative Other Gynecologic Problems: negative Social Hx: Patient is Smoking History: Patient has never smoked. Infection History Hx of STD: none Personal hx. of genital herpes: no Partner hx. of genital herpes: no Rash, Viral, or Febrile illness since last LMP? no Varicella/Chicken Pox Status: Previous Disease TB Risk: no Genetic History Congenital Heart Defect: Mom: no Dad: no Timothy Disease: Mom: no Dad: no Thalassemia Mom: no Dad: no Neural Tube Defect Mom: no Dad: no Down's Syndrome Mom: no Dad: no Cain-Sachs Mom: no Dad: no Sickle Cell Disease/Trait Mom: no Dad: no Hemophilia Mom: no Dad: no Muscular Dystrophy Mom: no Dad: no Cystic Fibrosis Mom: no Dad: no [place] Chorea Mom: no Dad: no Mental Retardation Mom: no Dad: no Fragile X Mom: no Dad: no Other Genetic/Chromosomal Disorder Mom: no Dad: no Child w/other defect Mom: no Dad: no Enviromental Exposures Enviromental Exposures Reviewed Xray Exposure: no Medication, drug, or alcohol use since LMP: yes Chemical/Other Exposure: no Exposure to Cat Liter: no Hx of Parvovirus (Fifth Disease): no Occupational Exposure to Children: other Comments: amoxicillin, loratidine, works at [employer] Active Medications (reviewed today): LORATADINE 10 MG ORAL TABS (LORATADINE) AMOXICILLIN 500 MG ORAL TABS (AMOXICILLIN) Current Allergies: DICLOFENAC SODIUM (DICLOFENAC SODIUM TBEC) (Critical) VOLTAREN (Critical) Laboratory Results Date/Time Collected: 11/22/2016 Routine Urinalysis Color: lt. yellow Appearance: cloudy Leukocytes: negative Nitrite: negative Urobilinogen: negative Protein: negative Blood: negative Ketone: negative Bilirubin: negative Glucose: negative Urine HCG: positive Review of Systems General Denies fever, chills, sweats, anorexia, fatigue, weakness, malaise, weight loss and sleep disorder. Complains of nausea and vomiting. Denies headache, swelling of legs, abdominal pain, vaginal discharge, vaginal bleeding and contractions. Denies vaginal discharge, incontinence, dysuria, hematuria, urinary frequency, amenorrhea, menorrhagia, abnormal vaginal bleeding, pelvic pain, genital sores, decreased libido, painful periods, painful sex, urinary urgency, hot flashes, vaginal dryness, vaginal itching and vaginal odor. CV Denies chest pains, palpitations, syncope, dyspnea on exertion, orthopnea, PND and peripheral edema. Resp Denies cough, dyspnea at rest, excessive sputum, hemoptysis, wheezing and pleurisy. GI Denies nausea, vomiting, diarrhea, constipation, change in bowel habits, abdominal pain, melena, hematochezia, jaundice, gas/bloating, indigestion/ heartburn, dysphagia and odynophagia. Endo Denies cold intolerance, heat intolerance, polydipsia, polyphagia, polyuria and unusual weight change. Breast Denies left breast lump, right breast lump, nipple discharge, bloody discharge from nipple, breast pain, abnormal mammogram and breast enlargement. MS Complains of back pain. Denies joint pain, joint swelling, muscle cramps, muscle weakness, stiffness, arthritis, sciatica, restless legs, leg pain at night and leg pain with exertion. Derm Denies rash, itching, dryness and suspicious lesions. Neuro Denies paralysis, paresthesias, headache, seizures, tremors, vertigo, transient blindness, frequent falls, frequent headaches and difficulty walking. Psych Denies depression, anxiety, irritability and mood swings. Eyes Denies blurring, diplopia, irritation, discharge, vision loss, eye pain and photophobia. ENT Denies earache, ear discharge, tinnitus, decreased hearing, nasal congestion, nosebleeds, sore throat and hoarseness. Allergy Denies urticaria, allergic rash, hay fever and recurrent infections. Heme Denies abnormal bruising, bleeding and enlarged lymph nodes. PHYSICAL EXAM HEENT: PERRLA, normal conjunctiva, external nose and nasal mucosa normal, oropharynx clear Neck/Thyroid: supple, thyroid normal Skin no significant abnormal lesions or rashes Chest: respiratory effort normal, clear to auscultation Breasts: normal without skin changes or masses CV: regular, normal S1-S2, no murmur, no rub, no gallop Abdomen: soft, nontender, no HSM Musculoskeletal: grossly normal ROM in joints, no joint tenderness or muscle weakness Neuro: grossly normal DTRs, sensation, strength, cranial nerves Extremities: no clubbing, cyanosis, or edema [employer] Exams Vulva/Vagina: No lesions, normal BUS, normal rugae Cervix: No lesions; no cervical motion tenderness Uterus: normal position, midline, mobile Fundal Ht: 9 Adnexae: no masses or tenderness Rectovaginal: no masses or tenderness Patient reports: movement normal, contractions (more freq and stronger), no new complaints, no loss of fluid, no vaginal bleeding Objective - Vital Signs Vital Signs: Vital Signs - 12hr 06/28/17 06/28/17 06/28/17 18:00 19:47 19:52 Temperature 99.2 F Pulse Rate 76 88 83 Respiratory 16 Rate Blood Pressure 129/70 O2 Sat by Pulse 99 100 100 Oximetry 06/28/17 06/28/17 06/28/17 19:57 19:58 20:02 Temperature 98.9 F Pulse Rate 84 91 H 88 Respiratory 18 Rate Blood Pressure 128/81 O2 Sat by Pulse 100 100 100 Oximetry 06/28/17 06/28/17 06/28/17 20:07 20:12 20:17 Temperature Pulse Rate 90 85 80 Respiratory Rate Blood Pressure O2 Sat by Pulse 100 100 100 Oximetry 06/28/17 06/28/17 06/28/17 20:22 20:27 20:32 Temperature Pulse Rate 83 90 78 Respiratory Rate Blood Pressure O2 Sat by Pulse 100 100 100 Oximetry 06/28/17 06/28/17 06/28/17 20:37 20:42 20:47 Temperature Pulse Rate 92 H 82 81 Respiratory Rate Blood Pressure O2 Sat by Pulse 100 100 100 Oximetry 06/28/17 06/28/17 06/28/17 20:52 21:25 22:09 Temperature Pulse Rate 83 89 84 Respiratory Rate Blood Pressure O2 Sat by Pulse 100 99 99 Oximetry 06/28/17 06/28/17 06/28/17 22:14 22:19 22:24 Temperature Pulse Rate 90 91 H 92 H Respiratory Rate Blood Pressure O2 Sat by Pulse 98 98 99 Oximetry 06/28/17 06/28/17 06/28/17 22:29 22:34 22:39 Temperature Pulse Rate 86 90 72 Respiratory Rate Blood Pressure O2 Sat by Pulse 99 99 100 Oximetry 06/28/17 06/28/17 06/28/17 22:44 22:49 22:50 Temperature Pulse Rate 92 H 77 78 Respiratory Rate Blood Pressure 109/66 O2 Sat by Pulse 98 99 Oximetry 06/28/17 06/28/17 06/28/17 22:54 22:59 23:04 Temperature Pulse Rate 78 79 84 Respiratory Rate Blood Pressure O2 Sat by Pulse 99 98 98 Oximetry 06/28/17 06/28/17 06/28/17 23:09 23:14 23:20 Temperature Pulse Rate 84 80 89 Respiratory Rate Blood Pressure O2 Sat by Pulse 98 99 100 Oximetry 06/28/17 06/28/17 06/28/17 23:25 23:30 23:35 Temperature Pulse Rate 76 96 H 100 H Respiratory Rate Blood Pressure O2 Sat by Pulse 100 99 99 Oximetry 06/28/17 06/28/17 06/28/17 23:40 23:45 23:50 Temperature Pulse Rate 79 82 76 Respiratory Rate Blood Pressure O2 Sat by Pulse 99 98 99 Oximetry 06/28/17 06/29/17 06/29/17 23:55 00:00 00:05 Temperature Pulse Rate 86 75 83 Respiratory Rate Blood Pressure O2 Sat by Pulse 99 100 100 Oximetry 06/29/17 06/29/17 06/29/17 00:10 00:15 00:20 Temperature Pulse Rate 79 85 80 Respiratory Rate Blood Pressure O2 Sat by Pulse 100 100 100 Oximetry 06/29/17 06/29/17 06/29/17 00:25 00:30 00:35 Temperature Pulse Rate 84 79 89 Respiratory Rate Blood Pressure O2 Sat by Pulse 100 98 99 Oximetry 06/29/17 06/29/17 06/29/17 00:37 00:40 00:45 Temperature Pulse Rate 74 87 74 Respiratory Rate Blood Pressure 124/82 O2 Sat by Pulse 99 99 Oximetry 06/29/17 06/29/17 06/29/17 00:50 00:55 01:00 Temperature Pulse Rate 79 76 83 Respiratory Rate Blood Pressure O2 Sat by Pulse 98 100 100 Oximetry 06/29/17 06/29/17 06/29/17 01:05 01:10 01:21 Temperature Pulse Rate 85 78 73 Respiratory Rate Blood Pressure O2 Sat by Pulse 100 100 100 Oximetry 06/29/17 06/29/17 06/29/17 01:26 01:31 01:36 Temperature Pulse Rate 73 71 75 Respiratory Rate Blood Pressure O2 Sat by Pulse 99 99 98 Oximetry 06/29/17 06/29/17 06/29/17 01:37 01:41 01:46 Temperature Pulse Rate 72 70 65 Respiratory Rate Blood Pressure 109/59 O2 Sat by Pulse 100 98 Oximetry 08/06/29/17 06/29/17 01:51 01:56 02:01 Temperature Pulse Rate 69 71 69 Respiratory Rate Blood Pressure O2 Sat by Pulse 98 98 98 Oximetry 06/29/17 06/29/17 06/29/17 02:06 02:11 02:16 Temperature Pulse Rate 73 76 80 Respiratory Rate Blood Pressure O2 Sat by Pulse 97 97 97 Oximetry 06/29/17 06/29/17 06/29/17 02:21 02:26 02:31 Temperature Pulse Rate 76 77 76 Respiratory Rate Blood Pressure O2 Sat by Pulse 98 98 99 Oximetry 06/29/17 06/29/17 06/29/17 02:36 02:37 02:41 Temperature Pulse Rate 73 72 88 Respiratory Rate Blood Pressure 129/79 O2 Sat by Pulse 99 100 Oximetry 06/29/17 06/29/17 06/29/17 02:46 02:51 02:56 Temperature Pulse Rate 80 76 74 Respiratory Rate Blood Pressure O2 Sat by Pulse 100 99 99 Oximetry 06/29/17 06/29/17 06/29/17 03:01 03:06 03:11 Temperature Pulse Rate 74 93 H 75 Respiratory Rate Blood Pressure O2 Sat by Pulse 99 99 100 Oximetry 06/29/17 06/29/17 06/29/17 03:16 03:21 03:26 Temperature Pulse Rate 92 H 81 72 Respiratory Rate Blood Pressure O2 Sat by Pulse 99 100 100 Oximetry 06/29/17 06/29/17 06/29/17 03:31 03:36 03:38 Temperature Pulse Rate 91 H 71 77 Respiratory Rate Blood Pressure 127/76 O2 Sat by Pulse 98 99 Oximetry 06/29/17 06/29/17 06/29/17 03:41 03:46 03:51 Temperature Pulse Rate 71 77 68 Respiratory Rate Blood Pressure O2 Sat by Pulse 99 100 100 Oximetry 06/29/17 06/29/17 06/29/17 03:56 04:40 05:38 Temperature Pulse Rate 69 72 73 Respiratory Rate Blood Pressure 107/66 111/65 O2 Sat by Pulse 99 Oximetry - Exam Breasts: deferred Cardiovascular: Regular rate Lungs: Normal air movement Abdomen: Present: normal appearance, soft. Absent: distention, tenderness Uterus: Present: normal FHR: auscultation normal, category 1 Uterine Contraction Monitor Mode: External Cervical Dilatation: 1.5 Cervical Effacement Percentage: 50 station: -2 Uterine Contraction Pattern: Regular Uterine Tone Measurement Phase: Resting Uterine Contraction Intensity: Mild Extremities: normal Deep Tendon Reflex Grade: Normal +2 - Labs Labs: Abnormal Labs 06/27/17 19:42 WBC 13.9 H Laboratory Results - last 24 hr 06/27/17 19:42 RPR Nonreactive
[2017-06-29] MEDS ORDERED: PITOCin/NS 30 UNIT/500ML 30 UNITS/500 ML BAG IV SCH (07:00)
[2017-06-29] MEDS: LACTATED RINGERS 1,000 ML IV SCH ×3 (11:25→18:53)
[2017-06-29] MEDS: SUBLIMAZE IV PRN ×2 (13:31→15:37)
--- NOTE | 2017-06-29 14:54 | Progress Note ---
Assessment and Plan pt tolerating labor well. discussed concern for multi doses of narcotic Pt agrees to epidural if delivery is not imminent after this dose of fentanyl. SVE 4,80,-2 ROM clear with old blood noted. Continue pitocin @ present rate. Re- eval as needed. Subjective - Subjective Date of service: 06/29/17 (ROM 4cm) Principal diagnosis: IUP@41 2w see in office yesterday with NRNST Interval history: EDC Confirmation: 06/20/2017 Gestational Age: 10 weeks Past History : 1 Term Births: 0 Living Children: 0 Para: 0 Aborta: 0 Past Medical History: Asthma Past Surgical History: Knee Arthroscopy(R) Family History Summary: Other family member - Has No Family History of Stomach Cancer - Entered On: 2016 Other family member - Has No Family History of Small Bowel Cancer - Entered On: 11/22/2016 Other family member - Has No Family History of Pancreatic Cancer - Entered On: Other family member - Has No Family History of Ovarvian Cancer - Entered On: 11/22 Other family member - Has No Family History of Kidney/Urinary Tract Cancer - Entered On: 11/22/2016 Other family member - Has No Family History of DVT/PE on OCP - Entered On: 2016 Other family member - Has No Family History of Breast Cancer - Entered On: 2016 Other family member - Has No Family History of Brain Cancer - Entered On: 2016 Other family member - Has No Family History of Biliary Tract Cancer - Entered On : 11/22/2016 PGM - Has Family History of Uterine Cancer - Entered On: 11/22/2016 Other family member - Has Family History Colon Cancer - Entered On: 11/22/2016 Social History: Patient is Smoking History: Patient has never smoked. 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 Infection History Hx of STD: none Personal hx. of genital herpes: no Partner hx. of genital herpes: no Rash, Viral, or Febrile illness since last LMP? no Varicella/Chicken Pox Status: Previous Disease TB Risk: no Genetic History Congenital Heart Defect: Mom: no Dad: no Timothy Disease: Mom: no Dad: no Thalassemia Mom: no Dad: no Neural Tube Defect Mom: no Dad: no Down's Syndrome Mom: no Dad: no Cain-Sachs Mom: no Dad: no Sickle Cell Disease/Trait Mom: no Dad: no Hemophilia Mom: no Dad: no Muscular Dystrophy Mom: no Dad: no Cystic Fibrosis Mom: no Dad: no Ely Chorea Mom: no Dad: no Mental Retardation Mom: no Dad: no Fragile X Mom: no Dad: no Other Genetic/Chromosomal Disorder Mom: no Dad: no Child w/other defect Mom: no Dad: no Enviromental Exposures Enviromental Exposures Reviewed Xray Exposure: no Medication, drug, or alcohol use since LMP: yes Chemical/Other Exposure: no Exposure to Cat Liter: no Hx of Parvovirus (Fifth Disease): no Occupational Exposure to Children: other Comments: amoxicillin, loratidine, works at [employer] Active Medications (reviewed today): LORATADINE 10 MG ORAL TABS (LORATADINE) AMOXICILLIN 500 MG ORAL TABS (AMOXICILLIN) Current Allergies: DICLOFENAC SODIUM (DICLOFENAC SODIUM TBEC) (Critical) VOLTAREN (Critical) Laboratory Results Date/Time Collected: 11/22/2016 Routine Urinalysis Color: lt. yellow Appearance: cloudy Leukocytes: negative Nitrite: negative Urobilinogen: negative Protein: negative Blood: negative Ketone: negative Bilirubin: negative Glucose: negative Urine HCG: positive Review of Systems General Denies fever, chills, sweats, anorexia, fatigue, weakness, malaise, weight loss and sleep disorder. Complains of nausea and vomiting. Denies headache, swelling of legs, abdominal pain, vaginal discharge, vaginal bleeding and contractions. Denies vaginal discharge, incontinence, dysuria, hematuria, urinary frequency, amenorrhea, menorrhagia, abnormal vaginal bleeding, pelvic pain, genital sores, decreased libido, painful periods, painful sex, urinary urgency, hot flashes, vaginal dryness, vaginal itching and vaginal odor. CV Denies chest pains, palpitations, syncope, dyspnea on exertion, orthopnea, PND and peripheral edema. Resp Denies cough, dyspnea at rest, excessive sputum, hemoptysis, wheezing and pleurisy. GI Denies nausea, vomiting, diarrhea, constipation, change in bowel habits, abdominal pain, melena, hematochezia, jaundice, gas/bloating, indigestion/ heartburn, dysphagia and odynophagia. Endo Denies cold intolerance, heat intolerance, polydipsia, polyphagia, polyuria and unusual weight change. Breast Denies left breast lump, right breast lump, nipple discharge, bloody discharge from nipple, breast pain, abnormal mammogram and breast enlargement. MS Complains of back pain. Denies joint pain, joint swelling, muscle cramps, muscle weakness, stiffness, arthritis, sciatica, restless legs, leg pain at night and leg pain with exertion. Derm Denies rash, itching, dryness and suspicious lesions. Neuro Denies paralysis, paresthesias, headache, seizures, tremors, vertigo, transient blindness, frequent falls, frequent headaches and difficulty walking. Psych Denies depression, anxiety, irritability and mood swings. Eyes Denies blurring, diplopia, irritation, discharge, vision loss, eye pain and photophobia. ENT Denies earache, ear discharge, tinnitus, decreased hearing, nasal congestion, nosebleeds, sore throat and hoarseness. Allergy Denies urticaria, allergic rash, hay fever and recurrent infections. Heme Denies abnormal bruising, bleeding and enlarged lymph nodes. 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 Vulva/Vagina: No lesions, normal BUS, normal rugae Cervix: No lesions; no cervical motion tenderness Uterus: normal position, midline, mobile Fundal Ht: 9 Adnexae: no masses or tenderness Rectovaginal: no masses or tenderness Patient reports: movement normal, contractions (more freq and stronger), no new complaints, no loss of fluid, no vaginal bleeding Objective - Vital Signs Vital Signs: Vital Signs - 12hr 06/29/17 06/29/17 06/29/17 02:51 02:56 03:01 Temperature Pulse Rate 76 74 74 Respiratory Rate Blood Pressure O2 Sat by Pulse 99 99 99 Oximetry 06/29/17 06/29/17 06/29/17 03:06 03:11 03:16 Temperature Pulse Rate 93 H 75 92 H Respiratory Rate Blood Pressure O2 Sat by Pulse 99 100 99 Oximetry 06/29/17 06/29/17 06/29/17 03:21 03:26 03:31 Temperature Pulse Rate 81 72 91 H Respiratory Rate Blood Pressure O2 Sat by Pulse 100 100 98 Oximetry 06/29/17 06/29/17 06/29/17 03:36 03:38 03:41 Temperature Pulse Rate 71 77 71 Respiratory Rate Blood Pressure 127/76 O2 Sat by Pulse 99 99 Oximetry 06/29/17 06/29/17 06/29/17 03:46 03:51 03:56 Temperature Pulse Rate 77 68 69 Respiratory Rate Blood Pressure O2 Sat by Pulse 100 100 99 Oximetry 06/29/17 06/29/17 06/29/17 04:40 05:38 06:52 Temperature Pulse Rate 72 73 86 Respiratory Rate Blood Pressure 107/66 111/65 O2 Sat by Pulse 99 Oximetry 06/29/17 06/29/17 06/29/17 06:57 07:04 10:37 Temperature 98.4 F Pulse Rate 101 H 98 H 93 H Respiratory 18 Rate Blood Pressure 131/82 131/82 137/83 O2 Sat by Pulse 99 Oximetry 06/29/17 10:40 Temperature Pulse Rate 93 H Respiratory 20 Rate Blood Pressure 137/83 O2 Sat by Pulse 100 Oximetry - Exam Breasts: deferred Cardiovascular: Regular rate Lungs: Normal air movement Abdomen: Present: normal appearance, soft. Absent: distention, tenderness Uterus: Present: normal FHR: auscultation normal, category 1 Uterine Contraction Monitor Mode: Internal Cervical Dilatation: 4 (ISE/IUPC placed) Cervical Effacement Percentage: 80 station: -2 Uterine Contraction Pattern: Regular (pit @ 24mu) Uterine Tone Measurement Phase: Resting Uterine Contraction Intensity: Moderate Extremities: edema Deep Tendon Reflex Grade: Normal +2 - Labs Labs: Abnormal Labs 06/27/17 19:42 WBC 13.9 H
[2017-06-29] MEDS ORDERED: POLYCILLIN/NS 2 GM/100 ML 2 GM/100 ML BAG IV ONE (15:34)
[2017-06-29] MEDS ORDERED: ePHEDrine SULFATE ONE (17:37)
--- NOTE | 2017-06-29 17:45 | Anesthesia Consultation ---
Anesthesia Consult and Med Hx Date of service: 06/29/17 - Airway Anesthetic Teeth Evaluation: Good ROM Head & Neck: Adequate Mental/Hyoid Distance: Adequate Mallampati Class: Class II Intubation Access Assessment: Probably Good - Pulmonary Exam CTA: Yes - Cardiac Exam Cardiac Exam: RRR - Pre-Operative Health Status ASA Pre-Surgery Classification: ASA3 Proposed Anesthetic Plan: Epidural, Spinal - Pulmonary Hx Asthma: Yes (USES VENTOLIN INHALER PRN) COPD: No Hx Pneumonia: No - Cardiovascular System Hx Hypertension: No - Central Nervous System Hx Seizures: No Hx Psychiatric Problems: No - Endocrine Hx Renal Disease: No Hx End Stage Renal Disease: No Hx Hypothyroidism: No Hx Hyperthyroidism: No - Hematic Hx Anemia: No Hx Sickle Cell Disease: No - Other Systems Hx Alcohol Use: No Hx Obesity: Yes (BMI > 40, MORBID) - Additional Comments Anesthesia Medical History Comments: +IUP
[2017-06-29] MEDS ORDERED: ePHEDrine SULFATE IV PRN (17:46)
--- NOTE | 2017-06-29 17:50 | Progress Note ---
Assessment and Plan pt trying to handle ctx Getting winded and unable to relax in between Pit turned down to 10mu, SVE 4,60,-2 cervix is swollen. Anesthesia called for epidural. made aware of pt's status. Subjective - Subjective Date of service: 06/29/17 (pt very uncomfortable) Principal diagnosis: IUP@41 27wga see in office yesterday with NRNST Interval history: EDC Confirmation: 06/20/2017 Gestational Age: 10 weeks Past History : 1 Term Births: 0 Living Children: 0 Para: 0 Aborta: 0 Past Medical History: Asthma Past Surgical History: Knee Arthroscopy(R) Family History Summary: Other family member - Has No Family History of Stomach Cancer - Entered On: 2016 Other family member - Has No Family History of Small Bowel Cancer - Entered On: 11/22/2016 Other family member - Has No Family History of Pancreatic Cancer - Entered On: Other family member - Has No Family History of Ovarvian Cancer - Entered On: 11/22 Other family member - Has No Family History of Kidney/Urinary Tract Cancer - Entered On: 11/22/2016 Other family member - Has No Family History of DVT/PE on OCP - Entered On: 2016 Other family member - Has No Family History of Breast Cancer - Entered On: 2016 Other family member - Has No Family History of Brain Cancer - Entered On: 2016 Other family member - Has No Family History of Biliary Tract Cancer - Entered On : 11/22/2016 PGM - Has Family History of Uterine Cancer - Entered On: 11/22/2016 Other family member - Has Family History Colon Cancer - Entered On: 11/22/2016 Social History: Patient is Smoking History: Patient has never smoked. 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 Infection History Hx of STD: none Personal hx. of genital herpes: no Partner hx. of genital herpes: no Rash, Viral, or Febrile illness since last LMP? no Varicella/Chicken Pox Status: Previous Disease TB Risk: no Genetic History Congenital Heart Defect: Mom: no Dad: no Timothy Disease: Mom: no Dad: no Thalassemia Mom: no Dad: no Neural Tube Defect Mom: no Dad: no Down's Syndrome Mom: no Dad: no Cain-Sachs Mom: no Dad: no Sickle Cell Disease/Trait Mom: no Dad: no Hemophilia Mom: no Dad: no Muscular Dystrophy Mom: no Dad: no Cystic Fibrosis Mom: no Dad: no Ely Chorea Mom: no Dad: no Mental Retardation Mom: no Dad: no Fragile X Mom: no Dad: no Other Genetic/Chromosomal Disorder Mom: no Dad: no Child w/other defect Mom: no Dad: no Enviromental Exposures Enviromental Exposures Reviewed Xray Exposure: no Medication, drug, or alcohol use since LMP: yes Chemical/Other Exposure: no Exposure to Cat Liter: no Hx of Parvovirus (Fifth Disease): no Occupational Exposure to Children: other Comments: amoxicillin, loratidine, works at [employer] Active Medications (reviewed today): LORATADINE 10 MG ORAL TABS (LORATADINE) AMOXICILLIN 500 MG ORAL TABS (AMOXICILLIN) Current Allergies: DICLOFENAC SODIUM (DICLOFENAC SODIUM TBEC) (Critical) VOLTAREN (Critical) Laboratory Results Date/Time Collected: 11/22/2016 Routine Urinalysis Color: lt. yellow Appearance: cloudy Leukocytes: negative Nitrite: negative Urobilinogen: negative Protein: negative Blood: negative Ketone: negative Bilirubin: negative Glucose: negative Urine HCG: positive Review of Systems General Denies fever, chills, sweats, anorexia, fatigue, weakness, malaise, weight loss and sleep disorder. Complains of nausea and vomiting. Denies headache, swelling of legs, abdominal pain, vaginal discharge, vaginal bleeding and contractions. Denies vaginal discharge, incontinence, dysuria, hematuria, urinary frequency, amenorrhea, menorrhagia, abnormal vaginal bleeding, pelvic pain, genital sores, decreased libido, painful periods, painful sex, urinary urgency, hot flashes, vaginal dryness, vaginal itching and vaginal odor. CV Denies chest pains, palpitations, syncope, dyspnea on exertion, orthopnea, PND and peripheral edema. Resp Denies cough, dyspnea at rest, excessive sputum, hemoptysis, wheezing and pleurisy. GI Denies nausea, vomiting, diarrhea, constipation, change in bowel habits, abdominal pain, melena, hematochezia, jaundice, gas/bloating, indigestion/ heartburn, dysphagia and odynophagia. Endo Denies cold intolerance, heat intolerance, polydipsia, polyphagia, polyuria and unusual weight change. Breast Denies left breast lump, right breast lump, nipple discharge, bloody discharge from nipple, breast pain, abnormal mammogram and breast enlargement. MS Complains of back pain. Denies joint pain, joint swelling, muscle cramps, muscle weakness, stiffness, arthritis, sciatica, restless legs, leg pain at night and leg pain with exertion. Derm Denies rash, itching, dryness and suspicious lesions. Neuro Denies paralysis, paresthesias, headache, seizures, tremors, vertigo, transient blindness, frequent falls, frequent headaches and difficulty walking. Psych Denies depression, anxiety, irritability and mood swings. Eyes Denies blurring, diplopia, irritation, discharge, vision loss, eye pain and photophobia. ENT Denies earache, ear discharge, tinnitus, decreased hearing, nasal congestion, nosebleeds, sore throat and hoarseness. Allergy Denies urticaria, allergic rash, hay fever and recurrent infections. Heme Denies abnormal bruising, bleeding and enlarged lymph nodes. 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 Vulva/Vagina: No lesions, normal BUS, normal rugae Cervix: No lesions; no cervical motion tenderness Uterus: normal position, midline, mobile Fundal Ht: 9 Adnexae: no masses or tenderness Rectovaginal: no masses or tenderness Patient reports: movement normal, contractions (more freq and stronger), no new complaints, no loss of fluid, no vaginal bleeding Objective - Vital Signs Vital Signs: Vital Signs - 12hr 06/29/17 06/29/17 06/29/17 06:52 06:57 07:04 Temperature 98.4 F Pulse Rate 86 101 H 98 H Respiratory 18 Rate Blood Pressure 131/82 131/82 O2 Sat by Pulse 99 99 Oximetry 06/29/17 06/29/17 06/29/17 10:37 10:40 14:51 Temperature 98.3 F Pulse Rate 93 H 93 H 93 H Respiratory 20 20 Rate Blood Pressure 137/83 137/83 137/83 O2 Sat by Pulse 100 100 Oximetry 06/29/17 06/29/17 06/29/17 16:36 16:38 17:44 Temperature 98.3 F Pulse Rate 70 90 84 Respiratory 20 Rate Blood Pressure 129/60 129/60 O2 Sat by Pulse 100 Oximetry - Exam Breasts: deferred Cardiovascular: Regular rate Lungs: Normal air movement Abdomen: Present: normal appearance, soft Uterus: Present: normal FHR: category 1 Uterine Contraction Monitor Mode: Internal Cervical Dilatation: 4 Cervical Effacement Percentage: 60 (cervix feels swollen) station: -2 Uterine Contraction Frequency (min): q2-4 Uterine Contraction Duration: 50 Uterine Contraction Pattern: Regular Uterine Contraction Intensity: Strong/Firm Extremities: edema Deep Tendon Reflex Grade: Normal +2 - Labs Labs: Abnormal Labs 06/27/17 19:42 WBC 13.9 H
[2017-06-29] MEDS ORDERED: NARCAN 2 MG/2 ML IV PRN (17:58)
[2017-06-29] MEDS ORDERED: fentaNYL-BUPIV 2 MCG/ML-0.125% 200 MCG/100 ML BAG EPIDURAL SCH (18:00)
[2017-06-29] MEDS ORDERED: PEPCID IV ONE (18:44)
[2017-06-29] MEDS ORDERED: BICITRA ONE (18:44)
[2017-06-29] MEDS ORDERED: REGLAN ONE (18:44)
[2017-06-29] MEDS ORDERED: ANCEF/STERILE WATER 2 GM/20 ML IV ONE (19:11)
[2017-06-29] MEDS ORDERED: XYLOCAINE MPF 2% ONE ×2 (19:12→19:17)
[2017-06-29] MEDS ORDERED: NACL 0.9% IR ONE (19:15)
[2017-06-29] MEDS ORDERED: MORPHINE ONE (19:20)
[2017-06-29] MEDS ORDERED: VERSED ONE (19:40)
[2017-06-29] MEDS ORDERED: SUBLIMAZE ONE (19:41)
[2017-06-29] MEDS ORDERED: WATER FOR IRRIG STERILE IR ONE (19:50)
[2017-06-29] MEDS ORDERED: MORPHINE IV PRN ×3 (20:19→22:11)
[2017-06-29] MEDS ORDERED: BENADRYL IV PRN (20:20)
--- NOTE | 2017-06-29 20:21 | Post Anesthesia Evaluation ---
- Post Anesthesia Evaluation Patient Participated: Yes Airway Patent: Yes Stable Respiratory Function: Yes Nausea/Vomiting: No Temp > 96.8F: Yes Pain Manageable: Yes Adequeate Hydration: Yes Anesthesia Complications: No Block Receding Appropriately: Yes Patient on Ventilator: No
--- NOTE | 2017-06-29 20:21 | Anesthesia Day of Surgery ---
Anesthesia Day of Surgery - Day of Surgery Patient Examined: Yes Patient H&P Reviewed: Yes Patient is NPO: Yes
--- NOTE | 2017-06-29 20:28 | Operative Report ---
Operative Report Operative Report: Date of procedure: 06/29/2017 Pre-operative diagnosis: Intrauterine at 41 weeks, nonreassuring heart tracing, failed induction and failure of dilatation Post-operative diagnosis: Same Procedure name(s): Primary low transverse section Surgeon: Wing Bui MD Donor Relations Manager: Anesthesia: Epidural EBL: 700 mL Complications: None Findings: Male infant weight 6 lbs. 4 oz. Apgars 8 at 1 minute and 9 at 5 minutes normal uterus tubes and ovaries bilaterally Specimen(s): None Procedure: The patient was brought to the operating room. Epidural was dosed. She was then placed in left lateral tilt. Prepped and draped in the usual sterile manner. After testing for adequate anesthesia level, a Pfannenstiel incision was made. This incision was taken down to the fascia. The fascia was then nicked in the midline. This incision was extended out laterally with Garcia scissors. The fascia was then sharply and bluntly from the underlying rectus muscles. The rectus muscles were bluntly and sharply . The peritoneum was then entered with the cut off saw set up operator's fingers. This incision was spread vertically with care not to damage the bladder below. The bladder flap was then formed sharply and bluntly with Metzenbaum scissors. The Steve self-retaining tractor was then placed without any difficulty. A transverse incision was made in lower uterine segment. This incision was extended laterally with the operators fingers. The amniotic sac was then entered bluntly with the cut off saw set up operator's fingers. The was delivered from the vertex position. Bulb suction on the mother's abdomen. Cord was double clamped and cut. The was then passed to the nursery personnel who were in attendance. The above scores were given by the nursery personnel. The placenta was then bluntly removed. The uterus was then externalized and wiped clean the remaining products. The uterine incision was closed in layers. The first incision was closed in a locking manner using 0 Vicryl. This was followed by imbricating stitch also with 0 Vicryl. This closure was hemostatic. The bladder flap was copiously irrigated and found to be hemostatic. The pelvis was copiously irrigated and found to be hemostatic. The uterus was then placed back to the patient's abdomen. The retractors were removed. The rectus muscles were inspected and found to be hemostatic. The fascia was then closed in a running manner using 0 Vicryl. This incision was hemostatic irrigation Bovie. The skin was reapproximated with 4-0 Vicryl subcuticularly. The patient tolerated procedure well. Her urine was clear. The was admitted to the well baby nursery. The patient was accompanied to recovery room in good condition. Instrument count correct 3.
[2017-06-29] MEDS: MORPHINE IV PRN ×2 (20:55→21:15)
[2017-06-29] MEDS ORDERED: NARCAN 0.4 MG/1 ML IV PRN (22:11)
[2017-06-29] MEDS ORDERED: LANSINOH TP PRN (22:11)
[2017-06-29] MEDS ORDERED: MILK OF MAGNESIA PO PRN (22:11)
[2017-06-29] MEDS ORDERED: ZOFRAN IV PRN (22:11)
[2017-06-29] MEDS ORDERED: SODIUM CHLORIDE FLUSH SYRINGE 10 ML IV NR (22:11)
[2017-06-29] MEDS ORDERED: PITOCin/NS 20 UNIT/1000ML DRIP 20 UNITS/1,000 ML BAG IV SCH (22:11)
[2017-06-29] MEDS ORDERED: MYLICON PO PRN (22:11)
[2017-06-29] MEDS ORDERED: TUCKS PAD TP PRN (22:11)
[2017-06-29] MEDS ORDERED: D5LR 1,000 ML IV SCH (22:11)
[2017-06-30] MEDS: ANCEF/NS 1 GM/50 ML 1 GM/50 ML BAG IV SCH ×2 (04:24→11:30)
--- NOTE | 2017-06-30 08:17 | Progress Note ---
Assessment and Plan - Patient Problems (1) delivery delivered Current Visit: Yes Status: Acute Plan to address problem: -con't routine post op care -will start Ibuprofen- Pt states she is not allergic and takes for menstrual cramping w/o any problems -ADAT -ambulate today -pt doing well. Subjective - Subjective Date of service: 06/30/17 Principal diagnosis: POD #1 s/p 1 c/s Interval history: Pt doing well. Pt states pain is well controlled. Patient reports: appetite normal, voiding normally, pain well controlled, ambulating normally [place]: doing well, nursing well, bottle feeding Objective - Vital Signs Latest vital signs: Vital Signs Temp Pulse Resp BP Pulse Ox 06/30/17 05:25 98.8 F 100 H 18 122/58 06/30/17 00:25 98.4 F 93 H 20 131/74 06/29/17 21:45 98.9 F 97 H 20 117/66 06/29/17 21:15 12 06/29/17 21:00 99.8 F H 06/29/17 20:55 15 06/29/17 20:08 99.3 F 06/29/17 18:47 84 87 06/29/17 18:41 119 H 100 06/29/17 18:37 86 116/56 06/29/17 18:36 116 H 100 06/29/17 18:31 103 H 100 06/29/17 18:26 120 H 100 06/29/17 18:21 99 H 100 06/29/17 18:16 97 H 100 06/29/17 18:11 117 H 100 06/29/17 18:06 111 H 100 06/29/17 18:04 81 111/60 06/29/17 18:03 93 H 110/56 06/29/17 18:01 107 H 124/58 100 06/29/17 17:57 106 H 125/63 06/29/17 17:55 83 121/69 06/29/17 17:54 84 100 06/29/17 17:53 90 141/74 06/29/17 17:51 87 138/63 06/29/17 17:49 90 140/70 100 06/29/17 17:47 108 H 122/72 06/29/17 17:44 84 100 06/29/17 16:38 98.3 F 90 20 129/60 06/29/17 16:36 70 129/60 06/29/17 14:51 98.3 F 93 H 20 137/83 100 06/29/17 10:40 93 H 20 137/83 100 06/29/17 10:37 93 H 137/83 Intake and Output 06/29/17 06/30/17 06/30/17 22:59 06:59 14:59 Intake Total 2200 220 Output Total 400 1700 Balance 1800 -1480 Intake: IV 2200 Lactated Ringers 1,000 ml 1000 @ 125 mls/hr IV DIRECT NOA Rx#:[id number] Intake, Free Water 220 Output: Urine 400 1700 Indwelling Catheter 1700 Other: Total, Output Amount 800 Estimated Blood Loss 700 - Exam Breasts: Present: normal Cardiovascular: Present: Normal S1, Normal S2 Lungs: Present: Clear to auscultation, Normal air movement Abdomen: Present: normal appearance, soft, normal bowel sounds Uterus: Present: normal, firm, fundal height below umbilicus Deep Tendon Reflex Grade: Normal +2 Incision: Present: normal, dry, intact, dressed
[2017-06-30 08:19] LABS: Hematocrit 38.2 % (30.3-42.9); Hemoglobin 12.8 gm/dl (10.1-14.3)
[2017-06-30] MEDS: NORCO 5/325 PO PRN ×3 (11:29→23:24)
[2017-06-30] MEDS: MOTRIN PO PRN (11:40)
--- NOTE | 2017-06-30 13:50 | Progress Note ---
Subjective Date of service: 06/30/17 Principal diagnosis: POD #1 s/p 1 c/s Interval history: 1st POD after primary Patient is in the bed, comfortable. Pain is well controlled with pain meds. Ambulated well. No residual neurological deficit. No pruritus. No anesthesia complications Objective - Constitutional Vitals: Vital Signs - 12hr 06/30/17 06/30/17 05:25 08:50 Temperature 98.8 F 99.2 F Pulse Rate 100 H 90 Respiratory 18 18 Rate Blood Pressure 122/58 124/79 - Labs CBC & Chem 7: 06/30/17 07:53
[2017-07-01] MEDS: MOTRIN PO PRN ×3 (03:03→17:18)
--- NOTE | 2017-07-01 08:43 | Progress Note ---
Assessment and Plan Patient doing well, no complaints. breast and bottle feeding ( difficult d/t flat nipples.) VSSAF, H&H stable, no s/s anemia. Patient desires d /c home today but states on 48h hold d/t GBS, will place d/c in chart for this evening if infant is released, otherwise patient may go tomorrow morning. routine f/u in office 1 week for incision check and circ. - Patient Problems (1) delivery delivered Current Visit: Yes Status: Acute Subjective - Subjective Date of service: 07/01/17 Principal diagnosis: POD #2 s/p 1 c/s Patient reports: appetite normal, voiding normally, pain well controlled, flatus , ambulating normally, no dizzy ambulation, no nauseated [place]: doing well, bottle feeding (breast and bottle feed) Objective - Vital Signs Latest vital signs: Vital Signs Temp Pulse Resp BP 07/01/17 03:03 16 07/01/17 00:45 98.5 F 93 H 18 115/65 06/30/17 23:24 16 06/30/17 16:45 98.2 F 90 18 131/80 06/30/17 12:05 98.6 F 90 19 113/63 06/30/17 08:50 99.2 F 90 18 124/79 Intake and Output 06/30/17 07/01/17 07/01/17 22:59 06:59 14:59 Intake Total 720 300 Output Total 200 Balance 520 300 Intake: Oral 240 Intake, Free Water 480 300 Output: Urine 200 Indwelling Catheter 200 Other: Total, Intake Amount 240 Total, Output Amount 200 # Voids Void 1 2 - Exam Breasts: Present: normal, Cardiovascular: Present: Regular rate Lungs: Present: Clear to auscultation, Normal air movement Abdomen: Present: normal appearance, soft Vulva: both: normal Uterus: Present: normal, firm, fundal height at umbilicus Extremities: Present: normal Deep Tendon Reflex Grade: Normal +2 Incision: Present: normal, dry, intact
--- NOTE | 2017-07-01 08:48 | Discharge Summary ---
Providers - Providers Date of Admission: 06/27/17 18:49 Date of discharge: 07/01/17 Attending physician: ZEKE AMIN 06/29/17 22:11 Consult to Air Tester [CONS] Routine Reason For Exam: Primary care physician: ZEKE AMIN Hospitalization Reason for admission: induction of labor (nonreassuring tracing @ 41 weeks ) Delivery: Procedure: section, primary low transverse Incision: normal, dry, intact Other procedures: none complications: none Discharge diagnosis: IUP at term delivered [place] baby: male Hospital course: uncomplicated c/s Condition at discharge: Good Disposition: DC-01 TO HOME OR SELFCARE - Discharge Diagnoses (1) delivery delivered Status: Acute Plan - Discharge Medications Prescriptions: Ferrous Sulfate [Feosol 325 MG tab] 325 mg PO BID #60 tablet Lidocain2.5%/Prilocai2.5% [Emla] 2 gm TP ONCE #1 tube oxyCODONE /ACETAMINOPHEN [Percocet 5/325 mg] 1 - 2 tab PO Q4H PRN #30 tablet PRN Reason: Pain, Moderate - Provider Discharge Summary Activity: routine, no sex for 6 weeks, no heavy lifting 4 weeks, no strenuous exercise Diet: routine Instructions: routine Additional instructions: [] Smoking cessation referral if applicable(refer to patient education folder for contact #) [] Refer to [facility] Booklet Call your doctor immediately for: * Fever > 100.5 * Heavy vaginal bleeding ( >1 pad per hour) * Severe persistent headache * Shortness of breath * Reddened, hot, painful area to leg or breast * Drainage or odor from incision. * Keep incision clean and dry at all times and follow doctor's instructions regarding bathing/showering - Follow up plan Follow up: ZEKE AMIN MD [Primary Care Provider] - 7 Days (Congratulations!! please call [phone] to schedule your visit and your son's circumcision in 1 week. Bring EMLA cream to your son's appointment and await further instructions. Call for any questions or concerns.)
[2017-07-01] MEDS: FEOSOL PO SCH (11:26)
[2017-07-01] MEDS: PRENATAL VITAMIN PO SCH (11:26)
[2017-07-01] MEDS: NORCO 5/325 PO PRN (17:19)
[2017-07-02] MEDS: MOTRIN PO PRN (00:40)
[2017-07-02 11:30] VITALS: BP 140/74
[2017-07-02] MEDS: FEOSOL PO SCH (11:58)
[2017-07-02] MEDS: PRENATAL VITAMIN PO SCH (11:58)
== END 2017-07-02 12:12 | disposition home or self-care (01) | DRG 765 ==
LOC: LD 18:49 → APU 06-29 18:51 → OB 06-29 22:09
PROVIDERS: ADMIT Obstetrics & Gynecology; ATTEND Obstetrics & Gynecology
PROC: 3E0P7GC Introduction of Other Therapeutic Substance into Female Reproductive, Via Natural or Artificial Opening (ICD-10-PCS; 2017-06-27)
PROC: 10D00Z1 Extraction of Products of Conception, Low, Open Approach (ICD-10-PCS; principal; 2017-06-29)
DX: O76 Abnormality in fetal heart rate and rhythm complicating labor and delivery (principal); Z68.42 Body mass index [BMI] 45.0-49.9, adult; Z3A.41 41 weeks gestation of pregnancy; O99.824 Streptococcus B carrier state complicating childbirth; Z37.0 Single live birth; O99.52 Diseases of the respiratory system complicating childbirth; J45.909 Unspecified asthma, uncomplicated; O99.214 Obesity complicating childbirth; E66.01 Morbid (severe) obesity due to excess calories; O26.893 Other specified pregnancy related conditions, third trimester; Z67.21 Type B blood, Rh negative; O48.0 Post-term pregnancy
CPT/HCPCS: 36415; 59200; 85014; 85018; 85027; 86592; 86850; 86900; 86901; 99211; A6250; G0463; J0290; J0690; J2250; J2270; J2405; J2590; J2765; J3010; J7120; J7121